=== PATIENT | male | born 1965 | race Caucasian/White ===

== ENCOUNTER 2024-12-26 09:46 | Outpatient (AMB) | payer OTHER, SELFPAY ==
--- NOTE | 2024-12-26 10:12 | MHC.PC.OV ---
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 Allergies No Known Allergies Allergy (Verified 12/26/24 10:21) Medication List - Last Reconciled 12/26/24 by Asia Wilson MD atorvastatin 10 mg PO DAILY cholecalciferol (vitamin D3) 1,250 mcg PO QWEEK Tobacco use date assessed: 12/26/24 Dental Screening Dental Screen Date: 12/26/24 Did you have a dental visit in the last 12 months?: Yes Did you have a dental problem in the last 6 months where you did not have access to dental care?: No Was dental information given to patient?: Patient has dentist HPI BUSINESS RECORDS MANAGER Est Care HPI Details Patient presents for new patient visit. Medical history includes hyperlipidemia, controlled on atorvastatin. Patient reports intermittent lower back pain radiating to right lower extremity after doing yd work. He denies weakness or numbness in extremities change in the owel or bladder function. [facility] Medical History (Updated 12/26/24 @ 11:54 by Asia Wilson MD) Colon cancer screening Hyperlipidemia Surgical History (Updated 12/26/24 @ 11:12 by Asia Wilson MD) H/O left knee surgery Hx of rotator cuff surgery Family History (Updated 12/26/24 @ 10:33 by Radha Ceron [facility]) Father No problems noted. Mother Lung cancer Maternal Grandmother Diabetes Brother Diabetes Other Mental health disorder Social History (Updated 12/26/24 @ 11:50 by Asia Wilson MD) Household Members Other:: 2 adult children, daughter in [place] Housing: House Patient Tobacco Use Status: Never used Tobacco e-Cigarette/Vaping Use: Never Used service: Yes Current occupational status: employed Cognitive needs: No Hearing needs: No Vision needs: Yes Questionnaire PHQ-9 Over the last 2 weeks, how often have you been bothered by any of the following problems? 1. Little interest or pleasure in doing things: not at all 2. Feeling down, depressed, or hopeless: not at all 3. Trouble falling or staying asleep, or sleeping too much: not at all 4. Feeling tired or having little energy: not at all 5. Poor appetite or overeating: not at all 6. Feeling bad about yourself - or that you are a failure or have let yourself or your family down: not at all 7. Trouble concentrating on things, such as reading the newspaper or watching television: not at all 8. Moving or speaking so slowly that other people could have noticed. Or the opposite - being so fidgety or restless that you have been moving around a lot more than usual: not at all 9. Thoughts that you would be better off or of hurting yourself in some way: not at all Total score: 0 Depression Screening Interpretation: Negative Depression Screening Done: Yes 88870 - PHQ-9 Billing: Yes Source: Developed by Drs. Hiram Govea, Lakeshia Rajan, Richard Smith and colleagues, with an educational chirag from [employer]. Thrive Questionnaire Date Thrive assessed: 12/26/24 I am a: Patient What is your living situation today?: I choose not to answer this question Within the past 12 months, did the food you bought not last and you didn't have the money to get more?: I choose not to answer this question Within the past 12 months, did you worry whether your food would run out before you got money to buy more?: I choose not to answer this question Do you have trouble paying for medicines?: I choose not to answer this question Do you have trouble getting transportation to medical appointments?: No Do you have trouble paying your heating and electricity bill?: I choose not to answer this question Do you have trouble taking care of your child, family member or friend?: I choose not to answer this question Do you have trouble with day-to-day activities such as bathing, preparing meals, shopping, managing finances, etc.?: No Are you currently unemployed and looking for a job?: I choose not to answer this question Are you interested in more education?: I choose not to answer this question Please select the resources that you would like help with: None Currently or been in a relationship where the following occur: I choose not to answer THRIVE Score: 0 AUDIT C Alcohol Use Questionnaire (AUDIT-C) 1. How often do you have a drink containing alcohol?: 2-4 times a month 2. How many drinks containing alcohol do you have on a typical day when you are drinking?: 1 or 2 3. How often do you have six or more drinks on one occasion?: Never Total Score: 2 OMID-7 AMB Questionnaire OMID-7 Date OMID - 7 assessed: 12/26/24 Feeling nervous, anxious, or on edge: 0 = Not at all Not being able to stop or control worryin = Not at all Worrying too much about different things: 0 = Not at all Trouble relaxin = Not at all Being so restless that it is hard to sit still: 0 = Not at all Becoming easily annoyed or irritable: 0 = Not at all Feeling afraid as if something awful might happen: 0 = Not at all Total OMID-7 score (0-4 normal; 5-9 mild; 10-14 moderate; 15-21 severe): 0 Source: Developed by Drs. Hiram Govea, Lakeshia Rajan, Richard Smith and colleagues, with an educational chirag from [employer]. OMID-7 Assessment Billing OMID-7 Assessment Tool: OMID-7 Assessment 24820 Review of Systems Const All systems reviewed & are unremarkable except as noted in HPI and below Eyes Reports no additional complaints ENT Reports no additional complaints Card Reports no additional complaints Resp Reports no additional complaints GI Reports no additional complaints Reports no additional complaints Physical exam (Primary Care) Vital Signs: Last Vital Signs Temp 98.3 F 12/26/24 10:20 Pulse 79 12/26/24 10:20 Resp 18 12/26/24 10:20 BP 136/78 12/26/24 10:20 Pulse Ox 97 12/26/24 10:20 Oxygen Delivery Method Room Air 12/26/24 10:20 BMI result Body Mass Index 29.9 Tobacco/Smoking Status: Tobacco use Status Tobacco use date assessed 12/26/24 12/26/24 10:14 Patient Tobacco Use Status Never used Tobacco 12/26/24 10:28 e-Cigarette/Vaping Use Never Used 12/26/24 10:28 PHQ-9: PHQ-9 Score PHQ-9: Total score 0 12/26/24 10:28 Depression Screening Interpretation: Negative Thrive Assessment: Date of Thrive Assessment Date Thrive assessed 12/26/24 12/26/24 10:28 Currently or been in a relationship where the following occur: I choose not to answer Const General: no acute distress HENMT Head: Yes normal to inspection Face and sinus: Yes normal facial exam Neck Neck: Yes supple Resp Effort & Inspection: normal respiratory effort Auscultation: clear to auscultation bilaterally Cardio Rhythm: regular rhythm Heart sounds: S1 normal heart sound present and S2 normal heart sound present Back/Spine/Pelvis Other: No paraspinal tenderness in the lower lumbar region, straight leg rising 90 degrees bilaterally, deep tendon reflexes 1+ bilaterally Extrem General: Yes no clubbing, cyanosis or edema Coding Level of Care Code New Pt Level 4 (84738) Diagnoses Hyperlipidemia E78.5 Colon cancer screening Z12.11 Vitamin D deficiency E55.9 Sciatica M54.30 Additional Codes OMID-7 Assessment Billing - OMID-7 Assessment Tool: OMID-7 Assessment 87551 ([id number]) PHQ-9 - 89684 - PHQ-9 Billing: Yes ([id number]) Assessment & Plan Assessment & Plan (1) Hyperlipidemia: Code(s): E78.5 - Hyperlipidemia, unspecified Category: Medical Plan: Continue statin return for fasting blood work (2) Colon cancer screening: Comment: colonoscopy at 55, negative Code(s): Z12.11 - Encounter for screening for malignant neoplasm of colon Category: Medical Plan: Patient will obtain a copy of the report (3) Vitamin D deficiency: Code(s): E55.9 - Vitamin D deficiency, unspecified Category: Medical Plan: Continue vitamin-D supplement (4) Sciatica: Code(s): M54.30 - Sciatica, unspecified side Category: Medical Plan: Lower back exercises discussed with the patient Orders: Orders Lipid Panel Today Z00.00 - Encounter for general adult medical examination without abnormal findings Vitamin D 25-OH Total Today Z00.00 - Encounter for general adult medical examination without abnormal findings Comprehensive [place]. Panel Fast Today Z00.00 - Encounter for general adult medical examination without abnormal findings Ferritin Today E78.5 - Hyperlipidemia, unspecified, Z00.00 - Encounter for general adult medical examination without abnormal findings Medications: New atorvastatin 10 mg PO DAILY 90 tabs 3RF
[2024-12-26 10:20] VITALS: BP 136/78; PULSE 79; RESP 18; TEMP 36.8; O2SAT 97; BMI 29.9
== END 2024-12-26 11:48 | disposition home or self-care (01) ==
LOC: HO.HMCC 09:47
PROVIDERS: Visit Provider Internal Medicine
DX: E78.5 Hyperlipidemia, unspecified (principal); Z12.11 Encounter for screening for malignant neoplasm of colon; E55.9 Vitamin D deficiency, unspecified; M54.30 Sciatica, unspecified side

== ENCOUNTER → 2024-12-26 09:46 | Outpatient (BNVA) | payer OTHER, SELFPAY | PROVIDERS: Visit Provider Internal Medicine | DX: E78.5 Hyperlipidemia, unspecified (principal); E55.9 Vitamin D deficiency, unspecified; M54.30 Sciatica, unspecified side; Z79.899 Other long term (current) drug therapy; Z13.31 Encounter for screening for depression; Z13.39 Encounter for screening examination for other mental health and behavioral disorders | CPT/HCPCS: 96127 ==

== ENCOUNTER 2025-01-11 12:54 | Outpatient (REF) | payer OTHER, SELFPAY ==
--- OUTSIDE RECORDS SUMMARY | 2025-01-11 13:29 | XMS_ITS ---
Author Name [facility] Organization Unknown Care Team Organization Name Specialty Phone Email Start Date End Da te [facility] SEAN NUNEZ Primary Care 04/22/2022 02/01/20 24
[2025-01-11 16:44] LABS: Alanine Aminotransferase 45 U/L (0-40); Albumin Level 4.7 g/dL (3.5-5.0); Alkaline Phosphatase 129 U/L (39-117); Anion Gap 12 (12-20); Aspartate Amino Transferase 29 U/L (5-37); Blood Urea Nitrogen 18 mg/dL (9-16); Calcium 9.3 mg/dL (8.4-10.2); Carbon Dioxide 26 mmol/L (22-29); Chloride 107 mmol/L (96-108); Cholesterol 213 mg/dL (<200); Estimated Glomerular Filt Rate > 60; HDL Cholesterol 34 mg/dL (>40); Potassium 4.3 mmol/L (3.3-5.1); Sodium 141 mmol/L (135-145); Total Protein 7.5 g/dL (6.5-8.0); Triglycerides 209 mg/dL (<150)
[2025-01-11 16:55] LABS: Ferritin 334 ng/mL (20-250)
== END 2025-01-11 12:55 | disposition home or self-care (01) ==
LOC: HO.HMGCLDS 12:54
PROVIDERS: PCP Internal Medicine; Visit Provider Internal Medicine
DX: Z00.00 Encounter for general adult medical examination without abnormal findings (principal); E78.5 Hyperlipidemia, unspecified
CPT/HCPCS: 36415; 80053; 80061; 82306; 82728

== ENCOUNTER 2025-05-26 10:40 | Outpatient (REF) | payer OTHER, SELFPAY ==
[2025-05-26 13:54] LABS: MANUAL DIFF FLAG NO
[2025-05-26 14:02] LABS: Hematocrit 46.2 % (42.0-52.0); Hemoglobin 15.4 g/dl (14.0-18.0); Imm Gran Abs Auto 0.05 X10*3/uL (0.00-0.03); Imm Gran Pct Auto 0.8 % (0.0-0.4); Lymphocytes Absolute Auto 1.4 X10*3/uL (1.2-4.9); Mean Corpuscular HGB Conc 33.3 g/dl (31.0-36.0); Mean Corpuscular Hemoglobin 29.1 pg (27.0-33.0); Mean Corpuscular Volume 87.2 fL (80.0-98.0); NRBC Abs Auto 0.000 X10*3/uL (0.0-0.012); NRBC Pct Auto 0.0 /100WBC (0.0-0.2); Platelet Count 213 X10*3/uL (160-400); Red Blood Count 5.30 X10*6/uL (4.60-5.80); White Blood Count 6.1 X10*3/uL (4.8-10.8)
[2025-05-26 14:37] LABS: Cholesterol 237 mg/dL (<200); Gamma Glutamyl Transpeptidase 57 U/L (11-51); HDL Cholesterol 37 mg/dL (>40); Iron 83 mcg/dL (45-160); Percent Iron Saturation 31 % (15-50); Total Iron Binding Capacity 269 mcg/dL (228-428); Triglycerides 236 mg/dL (<150); Unsaturated Iron Binding 186 ug/dL
[2025-05-26 14:44] LABS: Ferritin 343 ng/mL (20-250)
== END 2025-05-26 10:41 | disposition home or self-care (01) ==
LOC: HO.HMGCLDS 10:40
PROVIDERS: PCP Internal Medicine; Visit Provider Internal Medicine
DX: R79.89 Other specified abnormal findings of blood chemistry (principal); E78.5 Hyperlipidemia, unspecified
CPT/HCPCS: 36415; 80061; 82728; 82977; 83540; 83721; 85025